=== PATIENT | female | born 1975 | race Caucasian/White ===

== ENCOUNTER 2018-07-30 15:48 | Emergency (ER) | payer OTHER ==
[~2018-07-30] VITALS: Ht 167.6 cm; Wt 147.0 kg
[~2018-07-30 15:48] MED LIST: ADIPEX37.5 MG PO; ALBUTEROL0.09 MG/A2 IH; ALL DAY ALLERGY10 MG PO; AMITRIPTYLINE10 MG PO; AMITRIPTYLINE50 MG PO; AMOXICILLIN500 MG PO; ANTI-FUNGAL1% TP; ATIVAN1 MG PO; ATORVASTATIN CA10 M1 PO; AUGMENTIN 875 M1 TAB PO; BACTRIM DS 8001 TA1 PO; BETAMETHASONE D1 CRE TP; CIPRO250 MG PO; CIPRO500 MG PO; CIPRODEX 0.3%-7.5 ML OT; CLINDAMYCIN150 MG PO; CORTISPORIN 1%-10 M1 OT; CYCLOBENZAPRINE10 MG PO; Cipro Hc 0.2%-110 ML OT; EYE DROPS; FENOFIBRATE160 MG PO; FLEXERIL10 MG PO; FLONASE ALLERG9.9 ML NAS; Fioricet 325 MG1 TAB PO; GABAPENTIN400 MG PO; HYDROCODONE BIT1 T11 PO; KEFLEX500 MG PO; KROGER NIC21 MG/24 H T; LASIX20 MG PO; LEVAQUIN750 M1 PO; LIPITOR20 MG PO; MEDROL DOSEPAK4 MG PO; METFORMIN HYDR500 MG PO; METHYLPREDNISONE4 MG PO; MIRAPEX PO; MOTRIN400 MG PO; NATURE'S BLEND F1 MG PO; NORCO 7.5-3251 EACH PO; NYSTATIN1 EAC3 MC; Nicotrol 10MG I1 BOX INH; POTASSIUM20 MEQ PO; PREDNICOT10 MG PO; PREDNISONE10 MG PO; PROVENTIL0.09 MG/AC IH; REQUIP0.25 MG PO; ROPINIROLE HYDRO1 MG PO; SLEEPING PILL PO; SYMBICORT1 AE1 INH; SYNTHROID,LEVO50 MCG PO; TESSALON PERLE100 M1 PO; TRAMADOL HCL50 MG PO; VICODIN 5/500 505 MG PO; VICODIN 500 MG-1 TAB PO; VOLTAREN75 MG PO; ZITHROMAX Z PA250 MG PO; ZOFRAN ODT4 MG SL; ZOFRAN ODT8 MG PO; ZOFRAN4 MG PO; Zofran4 MG PO; [UNRECOGNIZED DRUG - REMARK]
[2018-07-30 15:51] VITALS: BP 169/93
[2018-07-30] MEDS ORDERED: CEPHALEXIN500 M1 PO (16:24)
[2018-07-30] MEDS ORDERED: SEPTDS PO (16:24)
== END 2018-07-30 16:32 | disposition home or self-care (01) ==
LOC: ED 15:48
DX: L02.811 Cutaneous abscess of head [any part, except face] (principal); J44.9 Chronic obstructive pulmonary disease, unspecified; E11.9 Type 2 diabetes mellitus without complications; E66.01 Morbid (severe) obesity due to excess calories; F17.200 Nicotine dependence, unspecified, uncomplicated; Z88.8 Allergy status to other drugs, medicaments and biological substances; Z88.6 Allergy status to analgesic agent; Z79.899 Other long term (current) drug therapy; Z79.2 Long term (current) use of antibiotics; Z79.84 Long term (current) use of oral hypoglycemic drugs; Z86.718 Personal history of other venous thrombosis and embolism; Z68.43 Body mass index [BMI] 50.0-59.9, adult; Z90.49 Acquired absence of other specified parts of digestive tract

== ENCOUNTER 2019-03-14 23:54 | Emergency (ER) | payer OTHER ==
[~2019-03-14] VITALS: Ht 167.6 cm; Wt 146.5 kg
[~2019-03-14 23:54] MED LIST changes: +CEPHALEXIN500 M1 PO; +SEPTDS PO
[2019-03-14 23:56] VITALS: BP 175/87
[2019-03-15 00:51] LABS: BASO # 0.1 10*3/uL (0.0-0.1); BASO % 0.4 % (0.0-1.0); EOS # 0.3 10*3/uL (0.0-0.4); HEMATOCRIT 45.6 % (37.0-47.0); HEMOGLOBIN 15.1 g/dl (12.0-16.0); LYMPH # 3.6 10*3/uL (1.3-4.4); LYMPH % 28.2 % (27.0-41.0); MEAN CELL VOLUME 83.7 fl (81.0-99.0); MEAN CORPUSCULAR HGB 27.7 pg (27.0-31.0); MEAN CORPUSCULAR HGB CONC 33.1 g/dl (33.0-37.0); MEAN PLATELET VOLUME 9.2 fl (9.6-12.3); MONO # 0.7 10*3/uL (0.1-1.0); MONO % 5.6 % (3.0-9.0); NEUT # 8.1 10*3/uL (2.3-7.9); NEUT % 63.5 % (47.0-73.0); PLATELET COUNT AUTOMATED 254 10*3/uL (130-400); RED BLOOD COUNT 5.45 10*6/uL (4.10-5.10); RED CELL DISTRI WIDTH 15.7 % (0-14.5); WHITE BLOOD COUNT 12.8 10*3/uL (4.8-10.8)
[2019-03-15 01:08] LABS: ALBUMIN 3.3 gm/dl (3.1-4.5); ALKALINE PHOSPHATASE 150 U/L (45-117); BUN 8 mg/dl (7-24); CHLORIDE 98 mmol/L (98-107); CREATININE 0.77 mg/dL (0.55-1.02); POTASSIUM 3.8 mmol/L (3.5-5.1); SGOT/AST 19 IU/L (3-35); SGPT/ALT 30 U/L (12-78); SODIUM 135 mmol/L (136-145); TOTAL PROTEIN 7.6 gm/dL (6.4-8.2)
[2019-03-15] MEDS ORDERED: CEPHALEXIN500 M1 PO (01:28)
[2019-03-15] MEDS ORDERED: SEPTDS PO (01:28)
== END 2019-03-15 02:15 | disposition home or self-care (01) ==
LOC: ED 23:54
PROVIDERS: Nurse Practitioner Family
DX: L02.411 Cutaneous abscess of right axilla (principal); J44.9 Chronic obstructive pulmonary disease, unspecified; E11.9 Type 2 diabetes mellitus without complications; E66.01 Morbid (severe) obesity due to excess calories; F17.200 Nicotine dependence, unspecified, uncomplicated; Z68.43 Body mass index [BMI] 50.0-59.9, adult; Z88.8 Allergy status to other drugs, medicaments and biological substances; Z88.6 Allergy status to analgesic agent; Z79.2 Long term (current) use of antibiotics; Z79.899 Other long term (current) drug therapy

== ENCOUNTER 2019-07-12 21:04 | Emergency (ER) | payer OTHER ==
[~2019-07-12] VITALS: Ht 162.5 cm; Wt 145.1 kg
[2019-07-12 21:08] VITALS: BP 147/97
[2019-07-12] MEDS ORDERED: PROAIR HFA8.5 GM INH (22:28)
[2019-07-12] MEDS ORDERED: TESSALON PERLE100 M1 PO (22:28)
[2019-07-12] MEDS ORDERED: HYCODAN/HYDROMET5 ML PO (22:28)
[2019-07-12] MEDS ORDERED: ALLEGRA-D 24 H1 EACH PO (22:33)
[2019-07-12] MEDS ORDERED: PREDNISONE20 M1 PO (22:33)
== END 2019-07-12 22:46 | disposition home or self-care (01) ==
LOC: ED 21:04
DX: J06.9 Acute upper respiratory infection, unspecified (principal); H92.09 Otalgia, unspecified ear; R11.2 Nausea with vomiting, unspecified; F17.200 Nicotine dependence, unspecified, uncomplicated; Z88.8 Allergy status to other drugs, medicaments and biological substances; Z88.6 Allergy status to analgesic agent; Z79.2 Long term (current) use of antibiotics; Z79.899 Other long term (current) drug therapy; Z90.49 Acquired absence of other specified parts of digestive tract

== ENCOUNTER 2019-08-02 00:20 | Emergency (ER) | payer OTHER ==
[~2019-08-02] VITALS: Wt 108.9 kg
[~2019-08-02 00:20] MED LIST changes: +ALLEGRA-D 24 H1 EACH PO; +HYCODAN/HYDROMET5 ML PO; +PREDNISONE20 M1 PO; +PROAIR HFA8.5 GM INH
[2019-08-02 00:21] VITALS: BP 137/93
[2019-08-02 00:50] LABS: BASO % 0.3 % (0.0-1.0); EOS # 0.2 10*3/uL (0.0-0.4); EOS % 1.7 % (1.0-4.0); HEMATOCRIT 45.5 % (37.0-47.0); LYMPH # 2.5 10*3/uL (1.3-4.4); LYMPH % 18.5 % (27.0-41.0); MEAN CELL VOLUME 84.3 fl (81.0-99.0); MEAN CORPUSCULAR HGB 27.8 pg (27.0-31.0); MEAN PLATELET VOLUME 9.4 fl (9.6-12.3); MONO # 0.8 10*3/uL (0.1-1.0); MONO % 5.8 % (3.0-9.0); NEUT # 9.8 10*3/uL (2.3-7.9); NEUT % 73.3 % (47.0-73.0); PLATELET COUNT AUTOMATED 226 10*3/uL (130-400); RED CELL DISTRI WIDTH 15.6 % (0-14.5); WHITE BLOOD COUNT 13.4 10*3/uL (4.8-10.8)
[2019-08-02 01:12] LABS: ALBUMIN 3.1 gm/dl (3.1-4.5); ALKALINE PHOSPHATASE 136 U/L (45-117); CHLORIDE 101 mmol/L (98-107); CREATININE 0.71 mg/dL (0.55-1.02); POTASSIUM 4.1 mmol/L (3.5-5.1); SGOT/AST 21 IU/L (3-35); SGPT/ALT 29 U/L (12-78); SODIUM 136 mmol/L (136-145)
[2019-08-02 01:15] LABS: BUN 6 mg/dl (7-24)
[2019-08-02] MEDS ORDERED: CLINDAMYCIN HC300 MG PO (01:46)
== END 2019-08-02 01:57 | disposition left against medical advice (07) ==
LOC: ED 00:20
PROVIDERS: Physician Assistant
DX: L03.211 Cellulitis of face (principal); L02.01 Cutaneous abscess of face; G43.909 Migraine, unspecified, not intractable, without status migrainosus; I10 Essential (primary) hypertension; E11.42 Type 2 diabetes mellitus with diabetic polyneuropathy; F17.200 Nicotine dependence, unspecified, uncomplicated; E66.9 Obesity, unspecified; M79.7 Fibromyalgia; Z88.6 Allergy status to analgesic agent; Z79.899 Other long term (current) drug therapy

== ENCOUNTER 2020-01-29 17:55 | Emergency (ER) | payer OTHER ==
[~2020-01-29] VITALS: Ht 160 cm; Wt 131.5 kg
[~2020-01-29 17:55] MED LIST changes: +CLINDAMYCIN HC300 MG PO
[2020-01-29] MEDS ORDERED: SEPTDS PO (18:52)
[2020-01-29] MEDS ORDERED: CEFADROXIL500 M1 PO (18:52)
[2020-01-29] MEDS ORDERED: NORCO 5-325 TA1 EACH PO (18:52)
[2020-01-29 20:55] VITALS: BP 133/89
== END 2020-01-29 21:01 | disposition home or self-care (01) ==
LOC: ED 17:55
DX: L08.9 Local infection of the skin and subcutaneous tissue, unspecified (principal); G43.909 Migraine, unspecified, not intractable, without status migrainosus; I10 Essential (primary) hypertension; E11.9 Type 2 diabetes mellitus without complications; Z88.8 Allergy status to other drugs, medicaments and biological substances; Z79.899 Other long term (current) drug therapy; Z79.2 Long term (current) use of antibiotics; Z90.49 Acquired absence of other specified parts of digestive tract

== ENCOUNTER 2020-02-01 20:06 | Emergency (ER) | payer OTHER ==
[~2020-02-01] VITALS: Ht 157.4 cm; Wt 131.5 kg
[~2020-02-01 20:06] MED LIST changes: +CEFADROXIL500 M1 PO; +NORCO 5-325 TA1 EACH PO
[2020-02-01 20:36] LABS: BASO % 0.2 % (0.0-1.0); EOS % 0.1 % (1.0-4.0); HEMATOCRIT 46.9 % (37.0-47.0); LYMPH # 2.5 10*3/uL (1.3-4.4); LYMPH % 12.8 % (27.0-41.0); MEAN CELL VOLUME 82.9 fl (81.0-99.0); MEAN CORPUSCULAR HGB 27.2 pg (27.0-31.0); MEAN CORPUSCULAR HGB CONC 32.8 g/dl (33.0-37.0); MEAN PLATELET VOLUME 9.3 fl (9.6-12.3); MONO # 1.1 10*3/uL (0.1-1.0); MONO % 5.7 % (3.0-9.0); NEUT # 15.5 10*3/uL (2.3-7.9); NEUT % 80.8 % (47.0-73.0); PLATELET COUNT AUTOMATED 274 10*3/uL (130-400); RED BLOOD COUNT 5.66 10*6/uL (4.10-5.10); RED CELL DISTRI WIDTH 15.7 % (0-14.5); WHITE BLOOD COUNT 19.2 10*3/uL (4.8-10.8)
[2020-02-01 20:52] LABS: ALBUMIN 3.4 gm/dl (3.1-4.5); ALKALINE PHOSPHATASE 170 U/L (45-117); BUN 9 mg/dl (7-24); CHLORIDE 99 mmol/L (98-107); CREATININE 0.63 mg/dL (0.55-1.02); SGOT/AST 359 IU/L (3-35); SGPT/ALT 124 U/L (12-78); SODIUM 131 mmol/L (136-145); TOTAL PROTEIN 7.7 gm/dL (6.4-8.2)
[2020-02-01 20:56] LABS: ACT PARTIAL THROMBO TIME 25.7 SECONDS (20.0-32.1)
[2020-02-01 21:25] LABS: LIPASE 55 U/L (73-393)
[2020-02-01 21:54] LABS: BILIRUBIN 1+ (NEGATIVE); BLOOD 1+ (NEGATIVE); CLARITY SL CLOUDY (CLEAR); COLOR YELLOW (YELLOW); GLUCOSE 3+ (NEGATIVE); KETONE 3+ (NEGATIVE); SPECIFIC GRAVITY 1.015 (1.005-1.030)
[2020-02-01 21:55] LABS: LEUKO ESTERASE NEGATIVE (NEGATIVE); NITRITE NEGATIVE (NEGATIVE); PH 6.5 (5.0-9.0); UROBILINOGEN 0.2 E.U./dl (0.2-1.0)
[2020-02-01 21:59] LABS: BACTERIA 1+; MUCOUS TRACE; RBC 0-2 rbc/hpf (0-2)
[2020-02-01 23:21] LABS: TROPONIN I 59.3 ng/ml (<0.045)
[2020-02-02 01:10] VITALS: BP 135/80
== END 2020-02-02 02:30 | disposition short-term general hospital (02) ==
LOC: ED 20:06
PROVIDERS: Emergency Medicine
DX: I21.4 Non-ST elevation (NSTEMI) myocardial infarction (principal); R06.02 Shortness of breath; M79.644 Pain in right finger(s); R07.9 Chest pain, unspecified; I10 Essential (primary) hypertension; J44.9 Chronic obstructive pulmonary disease, unspecified; E66.01 Morbid (severe) obesity due to excess calories; E11.40 Type 2 diabetes mellitus with diabetic neuropathy, unspecified; G43.909 Migraine, unspecified, not intractable, without status migrainosus; F17.200 Nicotine dependence, unspecified, uncomplicated; Z03.818 Encounter for observation for suspected exposure to other biological agents ruled out; Z88.6 Allergy status to analgesic agent; Z79.899 Other long term (current) drug therapy; Z68.43 Body mass index [BMI] 50.0-59.9, adult

== ENCOUNTER 2020-10-30 21:36 | Observation (INO) | payer OTHER ==
[~2020-10-30] VITALS: Ht 157.4 cm; Wt 127.0 kg
[2020-10-30 21:46] VITALS: BP 162/75
[2020-10-30 22:03] LABS: BASO % 0.3 % (0.0-1.0); EOS # 0.3 10*3/uL (0.0-0.4); EOS % 2.1 % (1.0-4.0); HEMATOCRIT 43.9 % (37.0-47.0); LYMPH # 3.4 10*3/uL (1.3-4.4); LYMPH % 28.3 % (27.0-41.0); MEAN CELL VOLUME 85.6 fl (81.0-99.0); MEAN CORPUSCULAR HGB 27.3 pg (27.0-31.0); MEAN CORPUSCULAR HGB CONC 31.9 g/dl (33.0-37.0); MEAN PLATELET VOLUME 9.7 fl (9.6-12.3); MONO # 0.7 10*3/uL (0.1-1.0); MONO % 6.2 % (3.0-9.0); NEUT # 7.3 10*3/uL (2.3-7.9); NEUT % 61.8 % (47.0-73.0); PLATELET COUNT AUTOMATED 250 10*3/uL (130-400); RED BLOOD COUNT 5.13 10*6/uL (4.10-5.10); RED CELL DISTRI WIDTH 14.6 % (0-14.5); WHITE BLOOD COUNT 11.9 10*3/uL (4.8-10.8)
[2020-10-30 22:12] LABS: ACT PARTIAL THROMBO TIME 26.7 SECONDS (20.0-32.1)
[2020-10-30 22:20] LABS: ALBUMIN 3.6 gm/dl (3.1-4.5); ALKALINE PHOSPHATASE 144 U/L (45-117); BUN 13 mg/dl (7-24); CHLORIDE 105 mmol/L (98-107); CREATININE 0.73 mg/dL (0.55-1.02); POTASSIUM 3.6 mmol/L (3.5-5.1); SGOT/AST 17 IU/L (3-35); SGPT/ALT 42 U/L (12-78); SODIUM 138 mmol/L (136-145); TOTAL PROTEIN 7.7 gm/dL (6.4-8.2)
[2020-10-30 22:21] LABS: TROPONIN I < 0.015 ng/ml (<0.045)
[2020-10-30 23:06] VITALS: BP 105/55
[2020-10-31] VITALS (10 sets, daily range): BP systolic 92–118; BP diastolic 39–68
[2020-10-31 03:43] LABS: BASO % 0.3 % (0.0-1.0); EOS # 0.1 10*3/uL (0.0-0.4); EOS % 1.3 % (1.0-4.0); HEMATOCRIT 42.3 % (37.0-47.0); LYMPH # 1.6 10*3/uL (1.3-4.4); MEAN CORPUSCULAR HGB 27.8 pg (27.0-31.0); MEAN CORPUSCULAR HGB CONC 32.4 g/dl (33.0-37.0); MEAN PLATELET VOLUME 9.8 fl (9.6-12.3); MONO # 0.4 10*3/uL (0.1-1.0); MONO % 3.7 % (3.0-9.0); NEUT # 7.6 10*3/uL (2.3-7.9); NEUT % 78.3 % (47.0-73.0); PLATELET COUNT AUTOMATED 214 10*3/uL (130-400); RED BLOOD COUNT 4.92 10*6/uL (4.10-5.10); RED CELL DISTRI WIDTH 14.6 % (0-14.5); WHITE BLOOD COUNT 9.7 10*3/uL (4.8-10.8)
[2020-10-31 03:58] LABS: ALBUMIN 3.4 gm/dl (3.1-4.5); ALKALINE PHOSPHATASE 133 U/L (45-117); BUN 12 mg/dl (7-24); CHLORIDE 106 mmol/L (98-107); CHOLESTEROL 157 mg/dL (<200); CREATININE 0.67 mg/dL (0.55-1.02); HDL CHOLESTEROL 42 mg/dl (40-60); LDL CHOLESTEROL 81 mg/dL (9-159); POTASSIUM 3.9 mmol/L (3.5-5.1); SGOT/AST 12 IU/L (3-35); SGPT/ALT 36 U/L (12-78); SODIUM 138 mmol/L (136-145); TOTAL PROTEIN 7.3 gm/dL (6.4-8.2); TRIGLYCERIDES 171 mg/dl (<150); VLDL CHOLESTEROL 34 mg/dL (6-40)
[2020-10-31] MEDS ORDERED: ELIQUIS5 M1 PO (04:04)
[2020-10-31] MEDS ORDERED: BRILINTA90 M1 PO (04:05)
[2020-10-31] MEDS ORDERED: RANOLAZINE ER500 MG PO (04:06)
[2020-10-31] MEDS ORDERED: LEVOTHYROXINE50 MCG PO (04:07)
[2020-10-31] MEDS ORDERED: ATORVASTATIN CA80 M1 PO (04:08)
[2020-10-31] MEDS ORDERED: METOPROLOL SUCC50 M1 PO (04:08)
[2020-10-31] MEDS ORDERED: LISINOPRIL2.5 MG PO (04:09)
[2020-10-31] MEDS ORDERED: Imdur SA60 MG PO (04:10)
[2020-10-31] MEDS ORDERED: NITROGLYCERIN0.4 MG SL (04:11)
[2020-10-31] MEDS ORDERED: REQUIP0.25 M1 PO (04:13)
[2020-10-31 17:46] LABS: VITAMIN D, 25-HYDROXY 15.6 ng/mL (30-100)
[2020-11-01] VITALS: BP 116/63
[2020-11-01 07:20] LABS: BUN 15 mg/dl (7-24); CHLORIDE 106 mmol/L (98-107); CREATININE 0.59 mg/dL (0.55-1.02); POTASSIUM 4.1 mmol/L (3.5-5.1); SODIUM 138 mmol/L (136-145)
[2020-11-01 08:00] VITALS: BP 110/65; BP 144/76
[2020-11-01] MEDS ORDERED: NATURE'S BLEND F1 MG PO (16:02)
[2020-11-01] MEDS ORDERED: GLUCOPHAGE500 M1 PO (16:02)
[2020-11-01] MEDS ORDERED: VITAMIN D350 MC2 PO (16:02)
== END 2020-11-01 18:09 | disposition home or self-care (01) ==
LOC: ED 21:36 → EDHOLD 23:08 → 5E 10-31 17:02
PROVIDERS: Emergency Medicine; Family Medicine; Internal Medicine; ADMIT Internal Medicine; ATTEND Internal Medicine
DX: R07.2 Precordial pain (principal); E11.65 Type 2 diabetes mellitus with hyperglycemia; J44.1 Chronic obstructive pulmonary disease with (acute) exacerbation; E87.70 Fluid overload, unspecified; R79.89 Other specified abnormal findings of blood chemistry; R74.8 Abnormal levels of other serum enzymes; I11.0 Hypertensive heart disease with heart failure; I50.9 Heart failure, unspecified; E44.0 Moderate protein-calorie malnutrition; E53.8 Deficiency of other specified B group vitamins; I25.10 Atherosclerotic heart disease of native coronary artery without angina pectoris; E78.5 Hyperlipidemia, unspecified; E03.9 Hypothyroidism, unspecified; Z95.0 Presence of cardiac pacemaker; E66.01 Morbid (severe) obesity due to excess calories; F17.210 Nicotine dependence, cigarettes, uncomplicated

== ENCOUNTER → 2021-03-17 | Outpatient (CLI) | payer OTHER ==
[~2021-03-17] MED LIST changes: +ATORVASTATIN CA80 M1 PO; +BRILINTA90 M1 PO; +ELIQUIS5 M1 PO; +GLUCOPHAGE500 M1 PO; +Imdur SA60 MG PO; +LEVOTHYROXINE50 MCG PO; +LISINOPRIL2.5 MG PO; +METOPROLOL SUCC50 M1 PO; +NITROGLYCERIN0.4 MG SL; +RANOLAZINE ER500 MG PO; +REQUIP0.25 M1 PO; +VITAMIN D350 MC2 PO
== END | disposition home or self-care (01) ==
LOC: RAD 15:08
PROVIDERS: ATTEND Preventive Medicine Occupational Medicine
DX: M54.12 Radiculopathy, cervical region (principal)